=== PATIENT | male | born 1995 | race Caucasian/White ===

== ENCOUNTER 2017-08-06 14:03 | Emergency (ER) | payer SELFPAY ==
[~2017-08-06 14:03] MED LIST: MOBI15TA PO
[2017-08-06 14:04] VITALS: BP 181/80; PULSE 128; RESP 20; TEMP 99; O2SAT 98
[2017-08-06] MEDS ORDERED: KETOROLAC TROMETHAMINE 60 MG/2 ML (IM) VIAL IM ONE (16:15)
--- NOTE | 2017-08-06 16:38 | RADRPT ---
EXAM DATE/TIME: 08/06/2017 16:11 [place] COMPARISON: KNEE RIGHT COMPLETE (4VWS), August 25, 2015, 14:19. INDICATIONS : Pain. MEDICAL HISTORY : None. SURGICAL HISTORY : None. ENCOUNTER: Initial ACUITY: 4 - 6 days PAIN SCORE: 7/10 LOCATION: Right Knee. FINDINGS: Four view examination of the right knee demonstrates no evidence of fracture or dislocation. Bony mi neralization is normal. The articular surfaces are intact. Probable trace suprapatellar effusion. CONCLUSION: 1. Probable trace suprapatellar effusion. 2. No acute fracture or dislocation. Agus Larkin MD on August 06, 2017 at 16:35 Board Certified Radiologist. This report was verified electronically.
--- NOTE | 2017-08-06 17:02 | PD ---
HPI Chief Complaint: Injury Time Seen by Provider: 15:59 Travel History International Travel<30 days: No Contact w/Intl Traveler<30days: No Traveled to known affect area: No History of Present Illness HPI 21-year-old male presents to emergency Department with right knee pain. Patient states he was working at home moving some debris and throwing some debris into a dumpster, when his right knee "popped, and went out". Patient states he fell down, and it seemed to go back into place. He had no pain immediately but some of the past 5 days his swelling and stiffness of the right knee has become more painful to the point of needing crutches to walk. He has been taking [id number] ibuprofen and Tylenol without much improvement. He is here for evaluation. Currently his pain is about 6 out of 10 emeses trying to walk when is 8 out of 10. His no known drug allergies. PFSH Past Medical History Medical History: Denies Significant Hx Immunizations Current: Yes Influenza Vaccination: No Past Surgical History Tonsillectomy: Yes (T&A) Social History Alcohol Use: Yes (occasional) Tobacco Use: Yes (cigars) Substance Use: No (denies) Allergies-Medications (Allergen,Severity, Reaction): Coded Allergies: No Known Allergies (Unverified Adverse Reaction, Unknown, 08/06/17) Reported Meds & Prescriptions Reported Meds & Active Scripts Active No Active Prescriptions or Reported Medications Review of Systems Except as stated in HPI: all other systems reviewed are Neg General / Constitutional: No: Fever Eyes: No: Visual changes HENT: No: Headaches Cardiovascular: No: Chest Pain or Discomfort Respiratory: No: Shortness of Breath Gastrointestinal: No: Abdominal Pain Genitourinary: No: Dysuria Musculoskeletal: Positive: Arthralgias, Limited ROM, Pain Skin: No Rash Neurologic: No: Weakness Psychiatric: No: Depression Endocrine: No: Polydipsia Hematologic/Lymphatic: No: Easy Bruising Physical Exam Narrative GENERAL: Patient appears in mild distress. SKIN: Warm and dry. Normal color. Normal turgor. No ecchymosis over the right knee however there is an effusion noted. HEAD: Atraumatic. Normocephalic. EYES: Pupils equal and round. No scleral icterus. No injection or drainage. ENT: No nasal bleeding or discharge. Mucous membranes pink and moist. NECK: Trachea midline. Supple and nontender. CARDIOVASCULAR: Regular rate and rhythm. RESPIRATORY: No accessory muscle use. Clear to auscultation. Breath sounds equal bilaterally. MUSCULOSKELETAL: Extremities without clubbing, cyanosis, or edema. No obvious deformities. Patient has negative pain with blotting of the patella, there is no significant laxity appreciated, however exam is limited secondary to patient' s pain. Patient has more pain proximal to the patella with localized swelling noted. NEUROLOGICAL: Awake and alert. No obvious cranial nerve deficits. Motor grossly within normal limits. Five out of 5 muscle strength in the arms and legs. Normal speech. PSYCHIATRIC: Appropriate mood and affect; insight and judgment normal. Data Data Last Documented VS Vital Signs Date Time Temp Pulse Resp B/P (MAP) Pulse Ox O2 Delivery O2 Flow Rate FiO2 08/06/17 14:04 99.0 128 20 181/80 (113) 98 Orders Orders Knee, Complete (4vws) (08/06/17 16:00) Ice/Cold Pack (08/06/17 16:00) Ketorolac Inj (Toradol Inj) (08/06/17 16:15) Splint Or Brace Apply/Monitor (08/06/17 16:54) [facility] Medical Decision Making Medical Screen Exam Complete: Yes Emergency Medical Condition: Yes Differential Diagnosis Knee sprain. Patella subluxation. Possible fracture. Narrative Course Patient is given Toradol 60 mg IM. X-rays taken of the right knee. X-rays negative for dislocation or fracture but is found to have a effusion. Patient is placed in a knee immobilizer. Patient will be continued on ibuprofen 800 mg 3 times a day #30. Patient can ambulate with knee immobilizer as tolerated over the next week. Crutches are recommended as he improves. Work note is given. Patient is referred to Dr. Wilkins if symptoms continue or do not improve as discussed. Diagnosis Primary Impression: Lateral subluxation of right patella, initial encounter Referrals: John Wilkins MD Patient Instructions: General Instructions, Knee Immobilizer (ED), Swollen Knee Joint (ED) Departure Forms: Work Release Enter return to work date: Aug 13, 2017 Additional Instructions: X-rays negative for dislocation or fracture but is found to have a effusion. Patient is placed in a knee immobilizer. Patient will be continued on ibuprofen 800 mg 3 times a day #30. Patient can ambulate with knee immobilizer as tolerated over the next week. Crutches are recommended as he improves. Work note is given. Patient is referred to Dr. Wilkins if symptoms continue or do not improve as discussed. Med/Other Pt SpecificInfo: Prescription(s) given Scripts No Active Prescriptions or Reported Meds Disposition: 01 DISCHARGE HOME Condition: Stable Aly Mccallum Aug 06, 2017 17:02
[2017-08-06] MEDS ORDERED: IBUP1TAB7 PO (17:03)
== END 2017-08-06 17:26 | disposition home or self-care (01) ==
LOC: NEPD 14:03
DX: S83.011A Lateral subluxation of right patella, initial encounter (principal); F17.290 Nicotine dependence, other tobacco product, uncomplicated; X50.9XXA Other and unspecified overexertion or strenuous movements or postures, initial encounter
CPT/HCPCS: 73564; 96372; 99283; J1885; L1830